=== PATIENT | female | born 1960 | race Caucasian/White ===

== ENCOUNTER → 2018-06-01 10:14 | Outpatient (CLI) | payer OTHER ==
[2015-06-25 10:49] VITALS: BMI 34.8
[~2018-06-01 10:14] MED LIST: BACTRIM DS TABL1 TAB PO; CYMBALTA30 MG PO; GLUCOPHAGE500 MG PO; HUMULIN R100 U/ML SC; LANTUS INSULIN10 ML SC
== END | disposition home or self-care (01) ==
LOC: D.RAD 10:14
DX: Z02.71 Encounter for disability determination (principal)

== ENCOUNTER 2019-10-11 00:42 | Inpatient (IN) | payer MEDICAID ==
[~2019-10-11] VITALS: Ht 162.6 cm; Wt 67.1 kg
[2019-10-11] MEDS ORDERED: JANUVIA100 MG PO (01:02)
[2019-10-11] MEDS ORDERED: GLIPIZIDE10 MG PO (01:02)
[2019-10-11] MEDS ORDERED: ABILIFY10 MG PO (01:03)
[2019-10-11] MEDS ORDERED: GLUCOPHAGE1000 MG (01:03)
[2019-10-11 01:25] LABS: EOSINOPHILS 2.3 % (0-7); HEMATOCRIT 24.9 % (36.0-48.0); IMMATURE GRANULOCYTES 0.2 % (0-5); LYMPHOCYTES 36.7 % (15-50); MCHC 24.9 g/dL (31.0-37.0); MCV 65.2 fL (80.0-100.0); MEAN PLATELET VOLUME 9.4 fL (7.4-10.4); MONOCYTES 12.2 % (2-11); NEUTROPHILS 47.6 % (40-80); RBC 3.82 10x6/uL (4.00-5.40); RDW 19.5 % (11.5-14.5); WBC 5.2 10x3/uL (4.8-10.8)
[2019-10-11 01:38] LABS: MCH 16.2 pg (26.0-34.0); PLATELET COUNT 332 10x3/uL (130-400)
[2019-10-11 01:39] LABS: HEMOGLOBIN 6.2 g/dL (12-16)
[2019-10-11 01:51] LABS: ALKALINE PHOSPHATASE 83 U/L (46-116); ALT (SGPT) 20 U/L (10-68); BILIRUBIN - TOTAL 0.36 mg/dL (0.2-1.3); CALCIUM 9.1 mg/dL (8.5-10.1); CARBON DIOXIDE 24.3 mmol/L (21.0-32.0); CHLORIDE - SERUM 98 mmol/L (98-107); CREATININE - SERUM 0.8 mg/dL (0.6-1.3); LIPASE 189 U/L (73-393); MAGNESIUM - SERUM 1.9 mg/dL (1.8-2.4); POTASSIUM - SERUM 4.4 mmol/L (3.5-5.1); PRO BNP 98 pg/mL (0-125); PROTEIN - SERUM 7.1 g/dL (6.4-8.2); SODIUM 131 mmol/L (136-145); THYROID STIMULATING HORMONE 5.43 uIU/mL (0.36-3.74); UREA NITROGEN 11 mg/dL (7-18); eGFR NON AFRICAN AMERICAN 77 mL/min (90-120)
[2019-10-11 01:58] LABS: CALC OSMOLALITY 284 mosm/kg (275-300); GLUCOSE 513 mg/dL (74-106); TROPONIN-I < 0.017 ng/mL (0.000-0.060)
[2019-10-11 03:56] LABS: UDS - AMPHET POSITIVE QUAL (NEGATIVE); UDS - BARB NEGATIVE QUAL (NEGATIVE); UDS - BENZO NEGATIVE QUAL (NEGATIVE); UDS - COCAINE NEGATIVE QUAL (NEGATIVE); UDS - OPIATE NEGATIVE QUAL (NEGATIVE); UDS - PCP NEGATIVE QUAL (NEGATIVE); UDS - THC NEGATIVE QUAL (NEGATIVE)
[2019-10-11 04:04] LABS: APPEARANCE CLEAR (CLEAR); COLOR STRAW (YELLOW); GLUCOSE 1000 mg/dL (NEGATIVE); KETONE SMALL mg/dL (NEGATIVE); NITRITE POSITIVE (NEGATIVE); PROTEIN NEGATIVE (NEGATIVE); UROBILINOGEN NORMAL (NORMAL)
[2019-10-11 04:05] LABS: BILIRUBIN NEGATIVE (NEGATIVE)
[2019-10-11 04:06] LABS: BACTERIA MANY /hpf (NEGATIVE); EPITHELIAL CELLS 0-5 /hpf (0-5); RED CELLS - URINE 0-5 /hpf (0-5)
[2019-10-11 04:27] VITALS: BP 103/49; BMI 25.5
--- NOTE | 2019-10-11 04:32 | NUR ---
RECEIVW=ED REPORT FROM ER. ARRIVED TO FLOOR ON STRETCHER. REPORTED COVERED IN BED BUGS WHEN ARRIVED TO ER. PLACED IN DECONTAMINATION ROOM IN ER. NO VISIBLE SIGNS OF BED BUGS AT THIS TIME. PRBC INFUSING AT 125CC/HR TO LEFT HAND AT THIS TIME. DENIES ANY PAIN. LUNG SOUNDS CLEAR BILATERALLY AND ABSX4. DENIES ANY NEEDS AT THIS TIME.
--- NOTE | 2019-10-11 08:24 | NUR ---
PATIENT IS SITTING UP AT THE SIDE OF THE BED. SECOND UNIT OF PRBC'S COMPLETE. SHE IS EATTING BREAKFAST. DENIES ANY NEEDS AT THIS TIME. RECIEVED SHIFT CHANGE REPORT. VITAL SIGNS STABLE. FINISHING BOLUS THAT WAS DUE ON ADMISSION AT 0400, BECAUSE IT HAD BEEN PAUSED FOR HER TO RECIEVE BLOOD. PATIENT IS ON CONTACT FOR BEDBUGS, AND HAS NO FAMILY AT BEDSIDE AT THIS TIME.
[2019-10-11 09:27] VITALS: BP 118/52
--- NOTE | 2019-10-11 10:17 | NUR ---
PATIENT IS AWAKE AND ALERT. SHE IS CONFUSED AT TIMES. SHE TRIED TO LEAVE THE ROOM AND WAS UNAWARE THAT SHE IS IN ISOLATION. SHE REORIENTED QUICKLY.
[2019-10-11 12:36] VITALS: BP 125/55
--- NOTE | 2019-10-11 12:44 | NUR ---
REPORTED BLOOD SUGAR OF [address] RAMONA MC. GAVE 20 UNITS OF INSULIN.
[2019-10-11 13:05] VITALS: BMI 25.4
[2019-10-11 16:38] VITALS: Ht 162.6 cm; Wt 67.1 kg
--- NOTE | 2019-10-11 16:59 | MORECARE ---
CASE MANAGEMENT DISCHARGE SUMMARY PATIENT: CHANTALE CABRERA UNIT: [id number] ADM DATE: 10/11/19 AGE: 59 : 56 SEX: F ROOM/BED: D.2108 AUTHOR: HANNAH,DOC PHYSICIAN: REFERRING PHYSICIAN: CARMINE DURÁN MD DATE OF SERVICE: 10/11/19 Discharge Plan Patient Name: CHANTALE CABRERA Facility: [facility]:[place] : 1960 Planned Disposition: Home Anticipated Discharge Date: Discharge Date: Expected LOS: Initial Reviewer: [email or web address] Initial Review Date: 10/11/2019 Generated: 10/11/19 5:59 pm Comments DCP- Discharge Planning Updated by [email or web address]: Dann Pepe on 10/11/19 3:[address] Patient Name: CHANTALE CABRERA Admission Status: ER Accout number: [id number] Admission Date: 10-11-2019 : 1960 Admission Diagnosis: Attending: CARMINE DURÁN Current LOS: 1 Anticipated DC Date: Planned Disposition: Home Primary Insurance: MEDICAID [place] Discharge Planning Comments: CM RECEIVED ORDER THAT PT HAS UNDESIRABLE LIVING CONDITIONS AND POSSIBLE APS INVOLVEMENT. CM MET WITH PT IN ROOM TO DISCUSS DISCHARGE PLANNING AND NEEDS. PT REPORTS LIVING AT HOME INDEPENDENTLY WITH HER ROOMATE, DARYL RAYMOND, WHO IS ALSO IN THE [facility] [place]; PT STATES THEY WERE BROUGHT IN BECAUSE THEY HAVE BEDBUGS AND THE AMBULANCE PERSON CALL ADULT PROTECTIVE SERVICES. PT HAS GLUCOMETER WITH NO MEDICAL EQUIPMENT PROVIDER PREFERENCE. PT HAS NO OUTSIDE SERVICES ASSISTING IN THE HOME. CM DISCUSSED AVAILABILITY OF HOME HEALTH, REHAB SERVICES AND MEDICAL EQUIPMENT. PT DENIES DISCHARGE NEEDS, REPORTS SHE WILL NEED ASSISTANCE WITH TRANSPORTATION TO GET HOME SHE NOR [address]. PT STATES SHE DOES USE MEDICAID BUS FOR MEDICAL APPOINTMENTS. PT REPORTS SHE HAS TREATED THE HOME FOR BEDBUGS WITH SPRAY AND POWDER, BUT THEY ARE STILL THERE. PT REPORTS SHE WOULD WELCOME ASSISTANCE FROM ADULT PROTECTIVE SERVICES TO GET RID OF BEDBUGS IF THEY CAN. PT REPORTS HER HOME TO BE SAFE AND SHE PLANS TO RETURN THERE AT DISCHARGE. PT PLANS TO RETURN HOME WITH ROOMMATE, DENIES DISCHARGE NEEDS. PT WILL NEED ASSISTANCE WITH TRANSPORTATION AND MAY USE THE MEDICAID TRANSPORT BUS IF IT IS AVAILABLE. CM TO CONTINUE TO FOLLOW AND ASSIST IF NEEDED. Glass Cutter: Dann Pepe DCPIA - Discharge Planning Initial Assessment Updated by [email or web address]: Dann Pepe on 10/11/19 4:53 pm * Is the patient Alert and Oriented? Yes * How many steps to enter\exit or inside your home? NONE * PCP DR. ZUNIGA * Pharmacy [facility] ON [address] * Preadmission Environment Home with Family * ADLs Independent * Equipment Glucometer * Other Equipment NO MEDICAL EQUIPMENT PROVIDER PREFERENCE * List name and contact numbers for known caregivers / representatives who currently or will assist patient after discharge: NONE PER PATIENT * Verbal permission to speak to the caregivers and representatives has been obtained from the patient. N/A * Community resources currently utilized None * Please name any agencies selected above. NONE * Additional services required to return to the preadmission environment? No * Can the patient safely return to the preadmission environment? Yes * Has this patient been hospitalized within the prior 30 days at any hospital? No Patient Name: CHANTALE CABRERA Page [id number] at 1659 All edits/amendments must be made on the electronic document DICTATION DATE: 10/11/191658 HOSIERY BAGGER: FLOYD 10/11/191658 RPT#: [id number] [place] DATE: STATUS: ADM IN [facility] [address] [place] [address] END OF REPORT
[2019-10-11 20:00] VITALS: BP 124/66
--- NOTE | 2019-10-11 20:05 | NUR ---
PT RESTING IN BED ALERT AND ORIENTED X4. CHANGED PT LINEN AT THIS TIME. RR EVEN AND UNLABORED. NO S/S OF DISTRESS. WILL CONTINUE TO MONITOR
[2019-10-12] VITALS: BP 111/58
--- NOTE | 2019-10-12 02:46 | NUR ---
I have reviewed this patient and I concur with the Shift Assessment completed by the Licensed Practical Nurse today this shift.
[2019-10-12 04:00] VITALS: BP 123/60
[2019-10-12 05:07] LABS: CALCIUM 8.7 mg/dL (8.5-10.1); CARBON DIOXIDE 24.4 mmol/L (21.0-32.0); CHLORIDE - SERUM 108 mmol/L (98-107); SODIUM 141 mmol/L (136-145); UREA NITROGEN 12 mg/dL (7-18)
[2019-10-12 05:08] LABS: CALC OSMOLALITY 282 mosm/kg (275-300); CREATININE - SERUM 0.5 mg/dL (0.6-1.3); GLUCOSE 130 mg/dL (74-106); POTASSIUM - SERUM 3.6 mmol/L (3.5-5.1); eGFR NON AFRICAN AMERICAN > 90 mL/min (90-120)
[2019-10-12 06:51] LABS: BASOPHILS 0.5 % (0-2); EOSINOPHILS 3.1 % (0-7); HEMATOCRIT 27.6 % (36.0-48.0); IMMATURE GRANULOCYTES 0.2 % (0-5); LYMPHOCYTES 35.9 % (15-50); MCHC 27.5 g/dL (31.0-37.0); MEAN PLATELET VOLUME 9.7 fL (7.4-10.4); MONOCYTES 13.2 % (2-11); NEUTROPHILS 47.1 % (40-80); PLATELET COUNT 280 10x3/uL (130-400); RBC 3.96 10x6/uL (4.00-5.40); RDW 22.1 % (11.5-14.5); WBC 5.5 10x3/uL (4.8-10.8)
[2019-10-12 06:52] LABS: HEMOGLOBIN 7.6 g/dL (12-16); MCH 19.2 pg (26.0-34.0); MCV 69.7 fL (80.0-100.0)
--- NOTE | 2019-10-12 07:20 | NUR ---
PT RESTING PEACEFULLY, BREATHS EVEN/REGULAR AND UNLABORED, NO SIGNS OR SYMPTOMS OF ACUTE DISTRESS NOTED AT THIS TIME. CL IN [facility], SRX2, NO FAMILY PRESENT AT BEDSIDE.
[2019-10-12 09:06] VITALS: BP 127/68
[2019-10-12 10:20] LABS: % SATURATION 2 % (15-55); IRON 12 ug/dl (35-150); TOTAL IRON BIND CAPACITY 407 ug/dl (260-445); UNSAT IRON BIND CAPACITY 395 ug/dl (150-375)
[2019-10-12 13:16] VITALS: BP 109/68
--- NOTE | 2019-10-12 15:43 | NUR ---
I have reviewed this patient and I concur with the Shift Assessment completed by the Licensed Practical Nurse today this shift.
--- NOTE | 2019-10-12 19:25 | NUR ---
PT HAS BEEN AWAKE AND ORIENTED. I/VS INTACT AND WORKING WELL, NOW BOTH SL. CHANGED LINNENS AND PT HEATH A SHOWER. NO COMPLAINTS/CONCERNS AT THIS TIME. PT REPORTS NO DIAHREAH TODAY, EXPLOSIVE OR OTHERWISE. NO FAMILY PRESENT AT BEDSIDE, NO SIGNS OR BED BUGS SEEN TODAY. CL IN REACH, SRX2.
--- NOTE | 2019-10-12 19:45 | NUR ---
PT RESTING IN BED WITH EYES CLOSED RR EVEN AND UNLABORED. NO S/S OF DISTRESS. VITALS STABLE. BED LOW CALL LIGHT WITHIN REACH. WILL CONTINUE TO MONITOR.
[2019-10-12 20:00] VITALS: BP 136/60
[2019-10-13] VITALS: BP 130/52
--- NOTE | 2019-10-13 02:52 | NUR ---
PT RESTING IN BED WITH EYES CLOSED. RR EVEN AND UNLABORED. BED LOW CALL LIGHT WITHIN REACH. WILL CONTINUE TO MONITOR.
[2019-10-13 04:00] VITALS: BP 140/69
--- NOTE | 2019-10-13 04:13 | NUR ---
I have reviewed this patient and I concur with the Shift Assessment completed by the Licensed Practical Nurse today this shift.
[2019-10-13 05:14] LABS: CALCIUM 8.6 mg/dL (8.5-10.1); CARBON DIOXIDE 23.4 mmol/L (21.0-32.0); CHLORIDE - SERUM 107 mmol/L (98-107); POTASSIUM - SERUM 3.9 mmol/L (3.5-5.1); SODIUM 139 mmol/L (136-145); UREA NITROGEN 12 mg/dL (7-18); eGFR NON AFRICAN AMERICAN 90 mL/min (90-120)
[2019-10-13 05:15] LABS: CALC OSMOLALITY 288 mosm/kg (275-300); CREATININE - SERUM 0.7 mg/dL (0.6-1.3); GLUCOSE 295 mg/dL (74-106)
[2019-10-13 05:26] LABS: BASOPHILS 0.4 % (0-2); EOSINOPHILS 1.6 % (0-7); HEMATOCRIT 29.3 % (36.0-48.0); HEMOGLOBIN 7.9 g/dL (12-16); IMMATURE GRANULOCYTES 0.2 % (0-5); LYMPHOCYTES 23.7 % (15-50); MCV 70.1 fL (80.0-100.0); MEAN PLATELET VOLUME 9.4 fL (7.4-10.4); MONOCYTES 14.2 % (2-11); NEUTROPHILS 59.9 % (40-80); PLATELET COUNT 232 10x3/uL (130-400); RBC 4.18 10x6/uL (4.00-5.40); RDW 22.9 % (11.5-14.5); WBC 4.9 10x3/uL (4.8-10.8)
[2019-10-13 05:27] LABS: MCH 18.9 pg (26.0-34.0)
--- NOTE | 2019-10-13 07:16 | NUR ---
PT RESTING PEACEFULLY, BREATHS EVEN REGULAR AND UNLABORED. NO SIGNS OR SYMTPOMS OF ACUTE DISTRESS NOTED AT THIS TIME. NO FAMILY AT BEDSIDE. CL IN REACH, SRX2.
[2019-10-13 08:55] VITALS: BP 129/86
--- NOTE | 2019-10-13 10:00 | NUR ---
PT AWAKE AND ORIENTED, SITTING ON SIDE OF BED EATING BREAKFAST. NO COMPLAINTS/CONCERNS, HOPEFULL TO GO HOME SOON. REPORTS NOT DIAHREAH SINCE THE 2 DAYS AGO, BUT HAS HAD UNCOMPLICATED B.MS. NO FAMILY PRESENT AT BEDSIDE. CL IN REACH, SRX2.
--- NOTE | 2019-10-13 10:47 | NUR ---
I have reviewed this patient and I concur with the Shift Assessment completed by the Licensed Practical Nurse today this shift.
[2019-10-13 16:40] VITALS: BP 111/70
--- NOTE | 2019-10-13 18:37 | NUR ---
PT AWAKE AND ORIENTED, BEEN UP WITHOUT ASSIST TO THE BATHROOM. NO COMPLAINTS OR CONCERNS. IRON RUNNING, IVS INTACT WNL. NO FAMILY PRESENT AT BEDSIDE. CL IN REACH, SRX2
--- NOTE | 2019-10-13 19:20 | NUR ---
REPORT RECEIVED. PT IN BED RR EVEN AND UNLABORED ON RA. NO S/Sx OF DISTRESS NOTED AT THIS TIME. NO VOICED C/O OR CONCERNS NOTED AT THIS TIME. SRX2, CALL LIGHT IN REACH. WILL CTM.
[2019-10-13 20:00] VITALS: BP 126/58
[2019-10-14 00:28] VITALS: BP 127/54
[2019-10-14 03:41] LABS: BASOPHILS 0.6 % (0-2); EOSINOPHILS 2.6 % (0-7); HEMATOCRIT 27.4 % (36.0-48.0); IMMATURE GRANULOCYTES 0.2 % (0-5); LYMPHOCYTES 32.1 % (15-50); MCHC 27.4 g/dL (31.0-37.0); MCV 70.1 fL (80.0-100.0); MEAN PLATELET VOLUME 9.3 fL (7.4-10.4); MONOCYTES 12.2 % (2-11); NEUTROPHILS 52.3 % (40-80); PLATELET COUNT 225 10x3/uL (130-400); RBC 3.91 10x6/uL (4.00-5.40); RDW 23.4 % (11.5-14.5); WBC 4.7 10x3/uL (4.8-10.8)
[2019-10-14 03:42] LABS: MCH 19.2 pg (26.0-34.0)
[2019-10-14 03:43] LABS: HEMOGLOBIN 7.5 g/dL (12-16)
[2019-10-14 03:47] LABS: CALCIUM 8.8 mg/dL (8.5-10.1); CARBON DIOXIDE 24.1 mmol/L (21.0-32.0); CHLORIDE - SERUM 108 mmol/L (98-107); CREATININE - SERUM 0.6 mg/dL (0.6-1.3); SODIUM 141 mmol/L (136-145); UREA NITROGEN 15 mg/dL (7-18); eGFR NON AFRICAN AMERICAN > 90 mL/min (90-120)
[2019-10-14 03:48] LABS: CALC OSMOLALITY 284 mosm/kg (275-300); GLUCOSE 153 mg/dL (74-106); POTASSIUM - SERUM 3.2 mmol/L (3.5-5.1)
[2019-10-14 04:30] VITALS: BP 124/63
--- NOTE | 2019-10-14 09:50 | NUR ---
PT HAD A BOWEL ACCIDENT OF DIARRHEA. PT STATES IT IS CHRONIC AND WOULD LIKE SOME IMMODIUM. PT WAS A STAND BY JARED IN THE SHOWER. COMPLETE LINEN CHANGE DONE. PT REFUSED METFORMIN STATING THIS IS WHAT IS CAUSING HER DIARRHEA. BED LOW. CL IN REACH. LAB DOING BLOOD DRAW. WILL COTNINUE TO MONITOR.
--- NOTE | 2019-10-14 09:56 | NUR ---
SPOKE WITH VON LEE AND SHE STATES TO ORDER QUESTRAN TID AND IMODIUM PRN. I VERBALIZED UNDERSTANDING. SHE STATES METFORMIN CAN CAUSE DIARRHEA.
[2019-10-14 10:27] VITALS: BP 113/60
--- NOTE | 2019-10-14 12:37 | NUR ---
HAD MESSAGE LEFT ON MY DESK TO CALL BACK PT'S BROTHER. SPOKE WITH PT ABOUT GIVING HIM INFORMATION ON HER AND SHE STATES THAT IT IS OK. I VERBALIZED UNDERSTANDING.
--- NOTE | 2019-10-14 12:41 | NUR ---
CALLED AND SPOKE WITH PT'S BROTHER AND ANSWERED QUESTIONS ABOUT DISCHARGE PLANNING. THEY STATE PT HAS NO WHERE TO GO AND THEY HAVE BEEN TRYING TO GET PT TO FILL OUT DISABILITY PAPERS FOR THE PAST MONTH SO SHE CAN GET ON DIABILITY BECAUSE SHE WOULD BE ELIGIBLE. I VERBALIZED UNDERSTANDING. HE STATES HIM ADN HIS WILL COME VISIT PT LATER. I VERBALIZED UNDERSTANDING.
[2019-10-14 13:10] VITALS: BP 143/70
--- NOTE | 2019-10-14 14:11 | NUR ---
Nutrition Follow-up: Noted pt with chronic diarrhea; refusing Metformin 2/2 diarrhea. Imodium and Questran started per MD. Diet: Diabetic No new wt Labs noted: K+ 3.2, Glu 153 Meds noted: Glucophage, KDur, Glucotrol, Humulin, Imodium, Questran -Continue current diet as tolerated. -Offer nutrition supplements with meals. -RD following.
--- NOTE | 2019-10-14 14:43 | NUR ---
PT JUST ATE ENTIRE LUNCH TRAY AN HOUR AND A HALF AGO. HAD X3 PACKAGES OF REYMUNDO CRACKERS AND X2 PEANUT BUTTER AND VANILLA PUDDING AT 0930 AND ATE ENTIRE BREAKFAST TRAY. PT STATES SHE IS STARVING. 1130 BS WAS 334 BECAUSE PT HAS BEEN NON COMPLIANT WITH DIABETIC DIET. SPOKE WTNICHOL LOCKWOOD ABOUT THIS AND SHE STATES NO MORE EXTRA TRAYS FOR PATIENT AND LIMIT SNACKS AND NEEDS TO BE ONLY SUGAR FREE SNACKS. I STATED TO PT ALL THIS AND SHE CALLED [employer] CONSULTANT THAT "SHE IS STARVING AND WE ARE STARVING HER." WHICH CAN NOT BE TRUE D/T ALL PT HAS ATE SO FAR TODAY. [employer] CONSULTANT CALLED AND SPOKE WITH GAS FLOW REGULATOR AND TOLD HER PT HAS EATEN EVERYTRAY AND SNACKS TODAY. SAP ARIBA CONSULTANT VERBALIZED UNDERSTANDING. GAVE PT X2 SUGAR FREE JELLOS.
--- NOTE | 2019-10-14 14:50 | NUR ---
VON LEE STATES TO ME TO ORDER REAL ESTATE FINANCIAL ANALYST CONSULT ABOUT DIABETIC DIET EDUCATION. I VERBALIZED UNDERSTADNING.
--- NOTE | 2019-10-14 15:39 | NUR ---
I have reviewed this patient and I concur with the Shift Assessment completed by the Licensed Practical Nurse today this shift.
[2019-10-14 17:00] VITALS: BP 122/61
--- NOTE | 2019-10-14 19:00 | NUR ---
EVENING ROUNDS COMPLETE. PT LAYING IN BED, NO SIGNS OF DISTRESS. AAOX4. CL IN REACH, BED IN LOWEST POSITION. PT DENIES ANY PAIN AT THIS TIME.
[2019-10-14 20:00] VITALS: BP 112/50
[2019-10-15] VITALS: BP 120/5
[2019-10-15 04:00] VITALS: BP 138/113
[2019-10-15 06:21] LABS: BASOPHILS 0.2 % (0-2); EOSINOPHILS 1.1 % (0-7); HEMATOCRIT 30.5 % (36.0-48.0); HEMOGLOBIN 8.2 g/dL (12-16); IMMATURE GRANULOCYTES 0.2 % (0-5); LYMPHOCYTES 10.3 % (15-50); MCHC 26.9 g/dL (31.0-37.0); MCV 71.1 fL (80.0-100.0); MONOCYTES 5.7 % (2-11); NEUTROPHILS 82.5 % (40-80); PLATELET COUNT 206 10x3/uL (130-400); RBC 4.29 10x6/uL (4.00-5.40); RDW 24.2 % (11.5-14.5); WBC 4.6 10x3/uL (4.8-10.8)
[2019-10-15 06:33] LABS: MCH 19.1 pg (26.0-34.0)
[2019-10-15 06:42] LABS: CALC OSMOLALITY 287 mosm/kg (275-300); CALCIUM 8.5 mg/dL (8.5-10.1); CARBON DIOXIDE 21.6 mmol/L (21.0-32.0); CHLORIDE - SERUM 106 mmol/L (98-107); CREATININE - SERUM 0.7 mg/dL (0.6-1.3); POTASSIUM - SERUM 3.7 mmol/L (3.5-5.1); SODIUM 140 mmol/L (136-145); UREA NITROGEN 13 mg/dL (7-18); eGFR NON AFRICAN AMERICAN 90 mL/min (90-120)
[2019-10-15 06:45] LABS: GLUCOSE 258 mg/dL (74-106)
--- NOTE | 2019-10-15 07:30 | NUR ---
A/A/OX4. DENIES ANY PAIN AT PRESENT TIME AND VOICES NO REQUESTS. REMAINS IN CONTACT ISOLATION AND PRECAUTIONS BEING FOLLOWED. ASSESSMENT COMPLETED AND WILL CONTINUE POC. CALL LIGHT IN REACH AND BED IN LOW POSITION.
--- NOTE | 2019-10-15 07:45 | NUR ---
A/A/OX4. DENIES ANY PAIN OR DISCOMFORT AT THIS TIME AND NO REQUESTS VOICED. PT IS UP AD [place] IN ROOM AND UP IN BEDSIDE CHAIR AT PRESENT TIME. LEFT CHEST HEMESPLIT PATENT AND DRESSING C/D/I. ASSESSMENT COMPLETED AND WILL CONTINUE POC.
--- NOTE | 2019-10-15 10:30 | NUR ---
LARGE AMOUNT INCONTINENT DIARRHEA STOOL. CLEANED AND MADE COMFORTABLE. NO REQUESTS.
[2019-10-15 10:57] VITALS: BP 113/48
[2019-10-15 12:00] VITALS: BP 114/61
--- NOTE | 2019-10-15 13:25 | NUR ---
Nutrition Consult/Follow-up: Received consult for diabetic education. Eating well overall, although reports some nausea today. Continues to have diarrhea. Diet: Diabetic PO intake: 100% yesterday No new wt Labs noted: Glu 258, A1C 10.9 Meds noted: Imodium, Questran, Glucophage, KDur, Glucotrol, Humulin -Continue current diet as tolerated. -Provided education/written information on diabetic diet. No questions. -RD following.
--- NOTE | 2019-10-15 16:46 | MORECARE ---
CASE MANAGEMENT DISCHARGE SUMMARY PATIENT: CHANTALE CABRERA UNIT: [id number] ADM DATE: 10/11/19 AGE: 59 : 56 SEX: F ROOM/BED: D.2100 AUTHOR: HANANH,DOC PHYSICIAN: REFERRING PHYSICIAN: CARMINE DURÁN MD DATE OF SERVICE: 10/15/19 Discharge Plan Patient Name: CHANTALE CABRERA Facility: [facility]:[place] : 1960 Planned Disposition: Home Anticipated Discharge Date: 10/16/19 Discharge Date: Expected LOS: 5 Initial Reviewer: [email or web address] Initial Review Date: 10/11/2019 Generated: 10/15/19 5:45 pm DCP- Discharge Planning Updated by [email or web address]: Dann Pepe on 10/11/19 3:[address] Patient Name: CHANTALE CABRERA Admission Status: ER Accout number: [id number] Admission Date: 10-11-2019 : 1960 Admission Diagnosis: Attending: CARMINE DURÁN Current LOS: 1 Anticipated DC Date: Planned Disposition: Home Primary Insurance: MEDICAID [place] Discharge Planning Comments: CM RECEIVED ORDER THAT PT HAS UNDESIRABLE LIVING CONDITIONS AND POSSIBLE APS INVOLVEMENT. CM MET WITH PT IN ROOM TO DISCUSS DISCHARGE PLANNING AND NEEDS. PT REPORTS LIVING AT HOME INDEPENDENTLY WITH HER ROOMATE, DARYL RAYMOND, WHO IS ALSO IN THE [facility] [place]; PT STATES THEY WERE BROUGHT IN BECAUSE THEY HAVE BEDBUGS AND THE AMBULANCE PERSON CALL ADULT PROTECTIVE SERVICES. PT HAS GLUCOMETER WITH NO MEDICAL EQUIPMENT PROVIDER PREFERENCE. PT HAS NO OUTSIDE SERVICES ASSISTING IN THE HOME. CM DISCUSSED AVAILABILITY OF HOME HEALTH, REHAB SERVICES AND MEDICAL EQUIPMENT. PT DENIES DISCHARGE NEEDS, REPORTS SHE WILL NEED ASSISTANCE WITH TRANSPORTATION TO GET HOME SHE [address]. PT STATES SHE DOES USE MEDICAID BUS FOR MEDICAL APPOINTMENTS. PT REPORTS SHE HAS TREATED THE HOME FOR BEDBUGS WITH SPRAY AND POWDER, BUT THEY ARE STILL THERE. PT REPORTS SHE WOULD WELCOME ASSISTANCE FROM ADULT PROTECTIVE SERVICES TO GET RID OF BEDBUGS IF THEY CAN. PT REPORTS HER HOME TO BE SAFE AND SHE PLANS TO RETURN THERE AT DISCHARGE. PT PLANS TO RETURN HOME WITH ROOMMATE, DENIES DISCHARGE NEEDS. PT WILL NEED ASSISTANCE WITH TRANSPORTATION AND MAY USE THE MEDICAID TRANSPORT BUS IF IT IS AVAILABLE. CM TO CONTINUE TO FOLLOW AND ASSIST IF NEEDED. Greeter Guest Services: Dann Pepe DCPIA - Discharge Planning Initial Assessment Updated by [id number]: Dann Pepe on 10/11/19 4:53 pm * Is the patient Alert and Oriented? Yes * How many steps to enter\exit or inside your home? NONE * PCP DR. ZUNIGA * [facility] [address] * Preadmission Environment Home with Family * ADLs Independent * Equipment Glucometer * Other Equipment NO MEDICAL EQUIPMENT PROVIDER PREFERENCE * List name and contact numbers for known caregivers / representatives who currently or will assist patient after discharge: NONE PER PATIENT * Verbal permission to speak to the caregivers and representatives has been obtained from the patient. N/A * Community resources currently utilized None * Please name any agencies selected above. NONE * Additional services required to return to the preadmission environment? No * Can the patient safely return to the preadmission environment? Yes * Has this patient been hospitalized within the prior 30 days at any hospital? No Last DP export: 10/11/19 3:59 p Patient Name: CHANTALE CABRERA Page [id number] at 1646 All edits/amendments must be made on the electronic document DICTATION DATE: 10/15/191644 SENIOR QUANTITY SURVEYOR: FLOYD 10/15/191644 RPT#: [id number] DC DATE: STATUS: ADM IN [facility] [address] [place] [address] END OF REPORT
--- NOTE | 2019-10-15 16:55 | MORECARE ---
CASE MANAGEMENT DISCHARGE SUMMARY PATIENT: CHANTALE CABRERA UNIT: [id number] ADM DATE: 10/11/19 AGE: 59 : 56 SEX: F ROOM/BED: D.2100 AUTHOR: HANNAH,DOC PHYSICIAN: REFERRING PHYSICIAN: CARMINE DURÁN MD DATE OF SERVICE: 10/15/19 Discharge Plan Patient Name: CHANTALE CABRERA Facility: [facility]:[place] : 1960 Planned Disposition: Home Anticipated Discharge Date: 10/16/19 Discharge Date: Expected LOS: 5 Initial Reviewer: [email or web address] Initial Review Date: 10/11/2019 Generated: 10/15/19 5:54 pm Comments DCP- Discharge Planning Updated by [email or web address]: Dann Pepe on 10/15/19 3:[address] Patient Name: CHANTALE CABRERA Encounter No: [id number] : 1960 Primary Insurance: [place] [employer] [facility] Anticipated DC Date: 10-16-2019 Planned Disposition: Home DCP follow-up note: CM RECEIVED CALL FROM JOE AND LEANA DAVIS, PT'S FRIENDS, AND [phone]. HINA DUEÑAS INFORMED CM THAT THE HOME THAT PT WAS LIVING IN BELONGS TO [facility] AND PT CANNOT RETURN THERE [facility] IS GOING TO A INTERMEDIATE AND THE HOUSE IS LOCKED AND FULL OF BUGS. PT IS TOO WEAK TO LIVE ON THE STREET AND HAS NO INCOME. THEY ASKED IF PT COULD GO TO THE MEDICAL CENTER. CM EXPLAINED THAT CM COULD NOT DISCUSS WITHOUT PT'S PERMISSION. LEANA INFORMED CM THAT PT'S BROTHER HAS HELPED PT IN THE PAST AND MAYBE HE CAN AGAIN. JOE PROVIDED PT'S PASTORS NUMBER, AND [phone]. CM MET WITH PT IN ROOM WHO PROVIDED PERMISSON TO SPEAK TO BOTH PASTOR LOUISE WELL JOE AND LEANA DAVIS IN REGARDS TO PT'S TREATMENT, CARE AND DISCHARGE PLANNING. CM DISCUSSED THAT PT CANNOT RETURN TO THE HOME WHERE SHE WAS LIVING. PT REPORTS SHE HAS BEEN TOLD AND PLANS TO STAY WITH HER BROTHER IN [place]. PT ASKED FOR CM TO CALL LEANA AND GET THE PHONE NUMBER TO HER BROTHER; CM CALLED LEANA DAVIS, , WHO PROVIDED PHONE NUMBER TO PT'S BROTHER, FERMIN DANIELS, . CM PROVIDED PHONE NUBMER TO PT TO CALL HER BROTHER. CM OFFERED TO START FINDING PT A WOMENS USP IN [place], PT DECLINED AND REPORTS SHE WILL BE STAYING WITH HER BROTHER AND WILL CALL HIM. PT STATES THAT HER BROTHER IS SUPPOSED TO VISIT WITH HER AT THE HOSPITAL ALSO, SHE IS WAITING FOR HIS ARRIVAL. NASIR GOMEZ OF [place] [facility], ADULT PROTECTIVE SERVICES, MET WITH PT ON TWO OCCAISIONS TODAY, MET WITH CM AND NOTIFED THAT THERE IS NO HOLD ON PATIENT, SHE HAS MENTAL CAPACITY TO MAKE DECISIONS FOR HERSELF. PT HAS TOLD MR. GOMEZ THAT SHE PLANS TO STAY WITH HER BROTHER IN [place]. PT HAS NO HOLD FROM ADULT PROTECTIVE SERVICES. PT HAS PLANS TO STAY WITH HER BROTHER IN [place] AT DISCHARGE. CM TO FOLLOW AND ASSIST NEEDED. Dann Pepe, CASE MANAGEMENT DCP- Discharge Planning Updated by [email or web address]: Dann Pepe on 10/11/19 3:[address] Patient Name: CHANTALE CABRERA Admission Status: ER Accout number: [id number] Admission Date: 10-11-2019 : 1960 Admission Diagnosis: Attending: CARMINE DURÁN Current LOS: 1 Anticipated DC Date: Planned Disposition: Home Primary Insurance: MEDICAID [place] Discharge Planning Comments: CM RECEIVED ORDER THAT PT HAS UNDESIRABLE LIVING CONDITIONS AND POSSIBLE APS INVOLVEMENT. CM MET WITH PT IN ROOM TO DISCUSS DISCHARGE PLANNING AND NEEDS. PT REPORTS LIVING AT HOME INDEPENDENTLY WITH HER ROOMATE, DARYL RAYMOND, WHO IS ALSO IN THE [facility] [place]; PT STATES THEY WERE BROUGHT IN BECAUSE THEY HAVE BEDBUGS AND THE AMBULANCE PERSON CALL ADULT PROTECTIVE SERVICES. PT HAS GLUCOMETER WITH NO MEDICAL EQUIPMENT PROVIDER PREFERENCE. PT HAS NO OUTSIDE SERVICES ASSISTING IN THE HOME. CM DISCUSSED AVAILABILITY OF HOME HEALTH, REHAB SERVICES AND MEDICAL EQUIPMENT. PT DENIES DISCHARGE NEEDS, REPORTS SHE WILL NEED ASSISTANCE WITH TRANSPORTATION TO GET HOME SHE NOR [address]. PT STATES SHE DOES USE MEDICAID BUS FOR MEDICAL APPOINTMENTS. PT REPORTS SHE HAS TREATED THE HOME FOR BEDBUGS WITH SPRAY AND POWDER, BUT THEY ARE STILL THERE. PT REPORTS SHE WOULD WELCOME ASSISTANCE FROM ADULT PROTECTIVE SERVICES TO GET RID OF BEDBUGS IF THEY CAN. PT REPORTS HER HOME TO BE SAFE AND SHE PLANS TO RETURN THERE AT DISCHARGE. PT PLANS TO RETURN HOME WITH ROOMMATE, DENIES DISCHARGE NEEDS. PT WILL NEED ASSISTANCE WITH TRANSPORTATION AND MAY USE THE MEDICAID TRANSPORT BUS IF IT IS AVAILABLE. CM TO CONTINUE TO FOLLOW AND ASSIST IF NEEDED. Mortuary Beautician: Dann Pepe DCPIA - Discharge Planning Initial Assessment Updated by [email or web address]: Dann Pepe on 10/11/19 4:53 pm * Is the patient Alert and Oriented? Yes * How many steps to enter\exit or inside your home? NONE * PCP DR. ZUNIGA * Pharmacy [facility] [address] * Preadmission Environment Home with Family * ADLs Independent * Equipment Glucometer * Other Equipment NO MEDICAL EQUIPMENT PROVIDER PREFERENCE * List name and contact numbers for known caregivers / representatives who currently or will assist patient after discharge: NONE PER PATIENT * Verbal permission to speak to the caregivers and representatives has been obtained from the patient. N/A * Community resources currently utilized None * Please name any agencies selected above. NONE * Additional services required to return to the preadmission environment? No * Can the patient safely return to the preadmission environment? Yes * Has this patient been hospitalized within the prior 30 days at any hospital? No Last DP export: 10/15/19 3:46 Patient Name: CHANTALE CABRERA Page [id number] at 1655 All edits/amendments must be made on the electronic document DICTATION DATE: 10/15/191653 CHICKEN BUYER: FLOYD 10/15/191653 RPT#: [id number] [place] DATE: STATUS: ADM IN [facility] [address] [place] [address] END OF REPORT
--- NOTE | 2019-10-15 18:27 | NUR ---
REVIEWED ASSESSMENT BY TELEHEALTH NURSE AND I CONCUR.
--- NOTE | 2019-10-15 19:16 | NUR ---
EVENING ROUNDS COMPLETE, PT WALKING AROUND ROOM. AAOX4, NO SIGNS OF DISTRESS. PT DENIES ANY PAIN OR NEEDS AT THIS TIME. CL IN REACH, BED IN LOWEST POSITION.
[2019-10-15 20:00] VITALS: BP 139/50
[2019-10-16 00:27] VITALS: BP 117/69
[2019-10-16 04:30] VITALS: BP 133/56
[2019-10-16 04:57] LABS: CALC OSMOLALITY 283 mosm/kg (275-300); CALCIUM 8.3 mg/dL (8.5-10.1); CARBON DIOXIDE 23.3 mmol/L (21.0-32.0); CHLORIDE - SERUM 106 mmol/L (98-107); CREATININE - SERUM 0.6 mg/dL (0.6-1.3); GLUCOSE 218 mg/dL (74-106); SODIUM 139 mmol/L (136-145); UREA NITROGEN 11 mg/dL (7-18); eGFR NON AFRICAN AMERICAN > 90 mL/min (90-120)
[2019-10-16 05:00] LABS: BASOPHILS 0.2 % (0-2); EOSINOPHILS 1.2 % (0-7); HEMATOCRIT 29.9 % (36.0-48.0); IMMATURE GRANULOCYTES 0.5 % (0-5); LYMPHOCYTES 24.2 % (15-50); MCHC 26.8 g/dL (31.0-37.0); MCV 71.7 fL (80.0-100.0); MEAN PLATELET VOLUME 9.7 fL (7.4-10.4); MONOCYTES 7.7 % (2-11); NEUTROPHILS 66.2 % (40-80); PLATELET COUNT 226 10x3/uL (130-400); RBC 4.17 10x6/uL (4.00-5.40); RDW 25.4 % (11.5-14.5); WBC 4.1 10x3/uL (4.8-10.8)
[2019-10-16 05:01] LABS: MCH 19.2 pg (26.0-34.0)
[2019-10-16 08:32] VITALS: BP 120/65
[2019-10-16 11:51] VITALS: BP 104/48
--- NOTE | 2019-10-16 12:47 | NUR ---
I have reviewed this patient and I concur with the Shift Assessment completed by the Licensed Practical Nurse today this shift.
[2019-10-16] MEDS ORDERED: CIPRO250 MG PO (14:39)
--- NOTE | 2019-10-16 15:30 | MORECARE ---
CASE MANAGEMENT DISCHARGE SUMMARY PATIENT: CHANTALE CABRERA UNIT: [id number] ADM DATE: 10/11/19 AGE: 59 : 56 SEX: F ROOM/BED: D.2107 AUTHOR: HANNAH,DOC PHYSICIAN: REFERRING PHYSICIAN: CARMINE DURÁN MD DATE OF SERVICE: 10/16/19 Discharge Plan Patient Name: CHANTALE CABRERA Facility: [facility]:[place] : 1960 Planned Disposition: Home Anticipated Discharge Date: 10/16/19 Discharge Date: Expected LOS: 5 Initial Reviewer: [id number] Initial Review Date: 10/11/2019 Generated: 10/16/19 4:30 pm DCP- Discharge Planning Updated by [id number]: Dann Pepe on 10/15/19 3:[address] Patient Name: CHANTALE CABRERA Encounter No: [id number] : 1960 [place] Insurance: [place] PRIVATE OPT[place] [facility] Anticipated DC Date: 10-16-2019 Planned Disposition: Home DCP follow-up note: CM RECEIVED CALL FROM JOE AND LEANA DAVIS, PT'S FRIENDS, AND [phone]. HINA DUEÑAS INFORMED CM THAT THE HOME THAT PT WAS LIVING IN BELONGS TO [facility] AND PT CANNOT RETURN THERE [facility] IS GOING TO A INTERMEDIATE AND THE HOUSE IS LOCKED AND FULL OF BUGS. PT IS TOO WEAK TO LIVE ON THE STREET AND HAS NO INCOME. THEY ASKED IF PT COULD GO TO [facility]. CM EXPLAINED THAT CM COULD NOT DISCUSS WITHOUT PT'S PERMISSION. LEANA INFORMED CM THAT PT'S BROTHER HAS HELPED PT IN THE PAST AND MAYBE HE CAN AGAIN. JOE PROVIDED PT'S PASTORS NUMBER, AND [phone]. CM MET WITH PT IN ROOM WHO PROVIDED PERMISSON TO SPEAK TO BOTH PASTOR LOUISE WELL JOE AND LEANA DAVIS IN REGARDS TO PT'S TREATMENT, CARE AND DISCHARGE PLANNING. CM DISCUSSED THAT PT CANNOT RETURN TO THE HOME WHERE SHE WAS LIVING. PT REPORTS SHE HAS BEEN TOLD AND PLANS TO STAY WITH HER BROTHER IN [place]. PT ASKED FOR CM TO CALL LEANA AND GET THE PHONE NUMBER TO HER BROTHER; CM CALLED LEANA DAVIS [phone], WHO PROVIDED PHONE NUMBER TO PT'S BROTHER, FERMIN DANIELS, . CM PROVIDED PHONE NUBMER TO PT TO CALL HER BROTHER. CM OFFERED TO START FINDING PT A [facility] IN [place], PT DECLINED AND REPORTS SHE WILL BE STAYING WITH HER BROTHER AND WILL CALL HIM. PT STATES THAT HER BROTHER IS SUPPOSED TO VISIT WITH HER AT THE HOSPITAL ALSO, SHE IS WAITING FOR HIS ARRIVAL. NASIR GOMEZ OF [place] DEPARTMENT OF HUMAN SERVICES, ADULT PROTECTIVE SERVICES, MET WITH PT ON TWO OCCAISIONS TODAY, MET WITH CM AND NOTIFED THAT THERE IS NO HOLD ON PATIENT, SHE HAS MENTAL CAPACITY TO MAKE DECISIONS FOR HERSELF. PT HAS TOLD MR. GOMEZ THAT SHE PLANS TO STAY WITH HER BROTHER IN [place]. PT HAS NO HOLD FROM ADULT PROTECTIVE SERVICES. PT HAS PLANS TO STAY WITH HER BROTHER IN [place] AT DISCHARGE. CM TO FOLLOW AND ASSIST NEEDED. Dann Pepe, CASE MANAGEMENT DCP- Discharge Planning Updated by [id number]: Dann Pepe on 10/11/19 3:[address] Patient Name: CHANTALE CABRERA Admission Status: ER Accout number: [id number] Admission Date: 10-11-2019 : 1960 Admission Diagnosis: Attending: CARMINE DURÁN Current LOS: 1 Anticipated DC Date: Planned Disposition: Home Primary Insurance: MEDICAID [place] Discharge Planning Comments: CM RECEIVED ORDER THAT PT HAS UNDESIRABLE LIVING CONDITIONS AND POSSIBLE APS INVOLVEMENT. CM MET WITH PT IN ROOM TO DISCUSS DISCHARGE PLANNING AND NEEDS. PT REPORTS LIVING AT HOME INDEPENDENTLY WITH HER ROOMATE, DARYL RAYMOND, WHO IS ALSO IN [facility]; PT STATES THEY WERE BROUGHT IN BECAUSE THEY HAVE BEDBUGS AND THE AMBULANCE PERSON CALL ADULT PROTECTIVE SERVICES. PT HAS GLUCOMETER WITH NO MEDICAL EQUIPMENT PROVIDER PREFERENCE. PT HAS NO OUTSIDE SERVICES ASSISTING IN THE HOME. CM DISCUSSED AVAILABILITY OF HOME HEALTH, REHAB SERVICES AND MEDICAL EQUIPMENT. PT DENIES DISCHARGE NEEDS, REPORTS SHE WILL NEED ASSISTANCE WITH TRANSPORTATION TO GET HOME SHE NOR [address]. PT STATES SHE DOES USE MEDICAID BUS FOR MEDICAL APPOINTMENTS. PT REPORTS SHE HAS TREATED THE HOME FOR BEDBUGS WITH SPRAY AND POWDER, BUT THEY ARE STILL THERE. PT REPORTS SHE WOULD WELCOME ASSISTANCE FROM ADULT PROTECTIVE SERVICES TO GET RID OF BEDBUGS IF THEY CAN. PT REPORTS HER HOME TO BE SAFE AND SHE PLANS TO RETURN THERE AT DISCHARGE. PT PLANS TO RETURN HOME WITH ROOMMATE, DENIES DISCHARGE NEEDS. PT WILL NEED ASSISTANCE WITH TRANSPORTATION AND MAY USE THE MEDICAID TRANSPORT BUS IF IT IS AVAILABLE. CM TO CONTINUE TO FOLLOW AND ASSIST IF NEEDED. Bankruptcy Processor: Dann Pepe DCPIA - Discharge Planning Initial Assessment Updated by [id number]: Dann Pepe on 10/11/19 4:53 pm * Is the patient Alert and Oriented? Yes * How many steps to enter\exit or inside your home? NONE * PCP DR. ZUNIGA * Pharmacy [facility] [address] * Preadmission Environment Home with Family * ADLs Independent * Equipment Glucometer * Other Equipment NO MEDICAL EQUIPMENT PROVIDER PREFERENCE * List name and contact numbers for known caregivers / representatives who currently or will assist patient after discharge: NONE PER PATIENT * Verbal permission to speak to the caregivers and representatives has been obtained from the patient. N/A * Community resources currently utilized None * Please name any agencies selected above. NONE * Additional services required to return to the preadmission environment? No * Can the patient safely return to the preadmission environment? Yes * Has this patient been hospitalized within the prior 30 days at any hospital? No Last DP export: 10/15/19 3:54 Patient Name: CHANTALE CABRERA Page [id number] at 1530 All edits/amendments must be made on the electronic document DICTATION DATE: 10/16/191528 ASSISTANT CENTER DIRECTOR: FLOYD 10/16/191528 RPT#: [id number] [place] DATE: STATUS: ADM IN [facility] [address] [place] [address] END OF REPORT
--- NOTE | 2019-10-16 15:38 | MORECARE ---
CASE MANAGEMENT DISCHARGE SUMMARY PATIENT: CHANTALE CABRERA UNIT: [id number] ADM DATE: 10/11/19 AGE: 59 : 56 SEX: F ROOM/BED: D.2102 AUTHOR: HANNAH,DOC PHYSICIAN: REFERRING PHYSICIAN: CARMINE DURÁN MD DATE OF SERVICE: 10/16/19 Discharge Plan Patient Name: CHANTALE CABRERA Facility: [facility]:[place] : 1960 Planned Disposition: Home Anticipated Discharge Date: 10/16/19 Discharge Date: Expected LOS: 5 Initial Reviewer: [id number] Initial Review Date: 10/11/2019 Generated: 10/16/19 4:38 pm Comments DCP- Discharge Planning Updated by [id number]: Dann Pepe on 10/16/19 2:[address] Patient Name: CHANTALE CABRERA Encounter No: [id number] : 1960 [place] Insurance[place] [employer] [place] Anticipated DC Date: 10-16-2019 Planned Disposition: Home DCP follow-up note: CM SPOKE TO HOUSING MANAGER AND BEDSIDE NURSE, PT HAS BEEN DISCHARGED AND HAS NO RIDE HOME. CM MET WITH PT IN ROOM TO DISCUSS DISCHARGE NEEDS AND PLANNING. PT DENIES DISCHARGE NEEDS OTHER THAN TRANSPORT TO HER BROTHER'S HOME AT [address] [place] [address]. PT STATES HER BROTHER AGREED TO LET HER STAY WITH HIM AND ALREADY LEFT TO GO TO WORK TODAY AT [employer] IN THE [facility] AND DOESN'T GET OFF WORK UNTIL LATE TONIGHT. PT DOES NOT HAVE KEYS TO GET INTO THE HOUSE. CM ADVISED PT THAT SHE HAS BEEN DISCHARGED FROM HOSPITAL AND CM CANNOT SEND PT TO HER BROTHER'S HOME PT HAS NO WAY TO GET INTO THE HOUSE. PT STATES SHE WILL CALL HER BROTHER AND HAVE HIM PICK HER UP AFTER SHE GETS OFF FROM WORK BUT IT WILL BE LATE TONIGHT. PT STATES SHE NEEDS SCRUBS TO WEAR SHE HAS NO CLOTHES. CM NOTIFIED BEDSIDE NURSE AND JESSY, MOTHER TESTER. PT REPORTS HER BROTHER WILL PICK HER UP AFTER HE GETS OFF FROM WORK LATE TONIGHT. Dann Pepe, CASE MANAGEMENT DCP- Discharge Planning Updated by [id number]: Dann Pepe on 10/15/19 3:[address] Patient Name: CHANTALE CABRERA Encounter No: [id number] : 1960 [place] Insurance: [place] [employer] [place] Anticipated DC Date: 10-16-2019 Planned Disposition: Home DCP follow-up note: CM RECEIVED CALL FROM JOE AND LEANA DAVIS, PT'S FRIENDS, AND [phone]. HINA DUEÑAS INFORMED CM THAT THE HOME THAT PT WAS LIVING IN BELONGS TO [facility] AND PT CANNOT RETURN THERE [facility] IS GOING TO A USP AND THE HOUSE IS LOCKED AND FULL OF BUGS. PT IS TOO WEAK TO LIVE ON THE STREET AND HAS NO INCOME. THEY ASKED IF PT COULD GO TO [facility]. CM EXPLAINED THAT CM COULD NOT DISCUSS WITHOUT PT'S PERMISSION. LEANA INFORMED CM THAT PT'S BROTHER HAS HELPED PT IN THE PAST AND MAYBE HE CAN AGAIN. JOE PROVIDED PT'S PASTORS NUMBER, AND [phone]. CM MET WITH PT IN ROOM WHO PROVIDED PERMISSON TO SPEAK TO BOTH PASTOR LOUISE WELL JOE AND LEANA DAVIS IN REGARDS TO PT'S TREATMENT, CARE AND DISCHARGE PLANNING. CM DISCUSSED THAT PT CANNOT RETURN TO THE HOME WHERE SHE WAS LIVING. PT REPORTS SHE HAS BEEN TOLD AND PLANS TO STAY WITH HER BROTHER IN [place]. PT ASKED FOR CM TO CALL LEANA AND GET THE PHONE NUMBER TO HER BROTHER; CM CALLED LEANA DAVIS, , WHO PROVIDED PHONE NUMBER TO PT'S BROTHER, FERMIN DANIELS, . CM PROVIDED PHONE NUBMER TO PT TO CALL HER BROTHER. CM OFFERED TO START FINDING PT A [facility] IN [place], PT DECLINED AND REPORTS SHE WILL BE STAYING WITH HER BROTHER AND WILL CALL HIM. PT STATES THAT HER BROTHER IS SUPPOSED TO VISIT WITH HER AT THE HOSPITAL ALSO, SHE IS WAITING FOR HIS ARRIVAL. NASIR PATRICIA OF [place] DEPARTMENT OF HUMAN SERVICES, ADULT PROTECTIVE SERVICES, MET WITH PT ON TWO OCCAISIONS TODAY, MET WITH CM AND NOTIFED THAT THERE IS NO HOLD ON PATIENT, SHE HAS MENTAL CAPACITY TO MAKE DECISIONS FOR HERSELF. PT HAS TOLD MR. GOMEZ THAT SHE PLANS TO STAY WITH HER BROTHER IN [place]. PT HAS NO HOLD FROM ADULT PROTECTIVE SERVICES. PT HAS PLANS TO STAY WITH HER BROTHER IN [place] AT DISCHARGE. CM TO FOLLOW AND ASSIST NEEDED. Dann Pepe, CASE MANAGEMENT DCP- Discharge Planning Updated by [id number]: Dann Pepe on 10/11/19 3:[address] Patient Name: CHANTALE CABRERA Admission Status: ER Accout number: [id number] Admission Date: 10-11-2019 : 1960 Admission Diagnosis: Attending: CARMINE DURÁN Current LOS: 1 Anticipated DC Date: Planned Disposition: Home Primary Insurance: MEDICAID [place] Discharge Planning Comments: CM RECEIVED ORDER THAT PT HAS UNDESIRABLE LIVING CONDITIONS AND POSSIBLE APS INVOLVEMENT. CM MET WITH PT IN ROOM TO DISCUSS DISCHARGE PLANNING AND NEEDS. PT REPORTS LIVING AT HOME INDEPENDENTLY WITH HER ROOMATE, DARYL RAYMOND, WHO IS ALSO IN [facility]; PT STATES THEY WERE BROUGHT IN BECAUSE THEY HAVE BEDBUGS AND THE AMBULANCE PERSON CALL ADULT PROTECTIVE SERVICES. PT HAS GLUCOMETER WITH NO MEDICAL EQUIPMENT PROVIDER PREFERENCE. PT HAS NO OUTSIDE SERVICES ASSISTING IN THE HOME. CM DISCUSSED AVAILABILITY OF HOME HEALTH, REHAB SERVICES AND MEDICAL EQUIPMENT. PT DENIES DISCHARGE NEEDS, REPORTS SHE WILL NEED ASSISTANCE WITH TRANSPORTATION TO GET HOME SHE NOR [address]. PT STATES SHE DOES USE MEDICAID BUS FOR MEDICAL APPOINTMENTS. PT REPORTS SHE HAS TREATED THE HOME FOR BEDBUGS WITH SPRAY AND POWDER, BUT THEY ARE STILL THERE. PT REPORTS SHE WOULD WELCOME ASSISTANCE FROM ADULT PROTECTIVE SERVICES TO GET RID OF BEDBUGS IF THEY CAN. PT REPORTS HER HOME TO BE SAFE AND SHE PLANS TO RETURN THERE AT DISCHARGE. PT PLANS TO RETURN HOME WITH ROOMMATE, DENIES DISCHARGE NEEDS. PT WILL NEED ASSISTANCE WITH TRANSPORTATION AND MAY USE THE MEDICAID TRANSPORT BUS IF IT IS AVAILABLE. CM TO CONTINUE TO FOLLOW AND ASSIST IF NEEDED. Wind Turbine Machinist: Dann Pepe DCPIA - Discharge Planning Initial Assessment Updated by [id number]: Dann Pepe on 10/11/19 4:53 pm * Is the patient Alert and Oriented? Yes * How many steps to enter\exit or inside your home? NONE * PCP DR. ZUNIGA * Pharmacy [facility] [address] * Preadmission Environment Home with Family * ADLs Independent * Equipment Glucometer * Other Equipment NO MEDICAL EQUIPMENT PROVIDER PREFERENCE * List name and contact numbers for known caregivers / representatives who currently or will assist patient after discharge: NONE PER PATIENT * Verbal permission to speak to the caregivers and representatives has been obtained from the patient. N/A * Community resources currently utilized None * Please name any agencies selected above. NONE * Additional services required to return to the preadmission environment? No * Can the patient safely return to the preadmission environment? Yes * Has this patient been hospitalized within the prior 30 days at any hospital? No Last DP export: 10/16/19 2:30 Patient Name: CHANTALE CABRERA Page [id number] at 1538 All edits/amendments must be made on the electronic document DICTATION DATE: 10/16/191537 CLERICAL AIDE: FLOYD 10/16/191537 RPT#: [id number] DC DATE: STATUS: ADM IN [facility] [address] [place] [address] END OF REPORT
--- NOTE | 2019-10-16 16:18 | MORECARE ---
CASE MANAGEMENT DISCHARGE SUMMARY PATIENT: CHANTALE CABRERA UNIT: [id number] ADM DATE: 10/11/19 AGE: 59 : 56 SEX: F ROOM/BED: D.2106 AUTHOR: HANNAH,DOC PHYSICIAN: REFERRING PHYSICIAN: CARMINE DURÁN MD DATE OF SERVICE: 10/16/19 Discharge Plan Patient Name: CHANTALE CABRERA Facility: [facility]:[place] : 1960 Planned Disposition: Home Anticipated Discharge Date: 10/16/19 Discharge Date: Expected LOS: 5 Initial Reviewer: [id number] Initial Review Date: 10/11/2019 Generated: 10/16/19 5:17 pm Comments DCP- Discharge Planning Updated by [id number]: Dann Pepe on 10/16/19 2:[address] Patient Name: CHANTALE CABRERA Encounter No: [id number] : 1960 [place] Insurance[place] [employer] [place] Anticipated DC Date: 10-16-2019 Planned Disposition: Home DCP follow-up note: CM SPOKE TO DIRECTOR OF PHYSICAL SECURITY AND BEDSIDE NURSE, PT HAS BEEN DISCHARGED AND HAS NO RIDE HOME. CM MET WITH PT IN ROOM TO DISCUSS DISCHARGE NEEDS AND PLANNING. PT DENIES DISCHARGE NEEDS OTHER THAN TRANSPORT TO HER BROTHER'S HOME AT [address] [place] [address]. PT STATES HER BROTHER AGREED TO LET HER STAY WITH HIM AND ALREADY LEFT TO GO TO WORK TODAY AT [employer] [facility] AND DOESN'T GET OFF WORK UNTIL LATE TONIGHT. PT DOES NOT HAVE KEYS TO GET INTO THE HOUSE. CM ADVISED PT THAT SHE HAS BEEN DISCHARGED FROM HOSPITAL AND CM CANNOT SEND PT TO HER BROTHER'S HOME PT HAS NO WAY TO GET INTO THE HOUSE. PT STATES SHE WILL CALL HER BROTHER AND HAVE HIM PICK HER UP AFTER SHE GETS OFF FROM WORK BUT IT WILL BE LATE TONIGHT. PT STATES SHE NEEDS SCRUBS TO WEAR SHE HAS NO CLOTHES. CM NOTIFIED BEDSIDE NURSE AND JESSY, ACCOUNTS RECEIVABLE COLLECTOR. PT REPORTS HER BROTHER WILL PICK HER UP AFTER HE GETS OFF FROM WORK LATE TONIGHT. Dann Pepe, CASE MANAGEMENT DCP- Discharge Planning Updated by [id number]: Dann Pepe on 10/15/19 3:[address] Patient Name: CHANTALE CABRERA Encounter No: [id number] : 1960 Primary Insurance: [place] [employer] [place] Anticipated DC Date: 10-16-2019 Planned Disposition: Home DCP follow-up note: CM RECEIVED CALL FROM JOE AND LEANA DAVIS, PT'S FRIENDS, AND [phone]. HINA DUEÑAS INFORMED CM THAT THE HOME THAT PT WAS LIVING IN BELONGS TO [facility] AND PT CANNOT RETURN THERE [facility] IS GOING TO A CUSTODIAL AND THE HOUSE IS LOCKED AND FULL OF BUGS. PT IS TOO WEAK TO LIVE ON THE STREET AND HAS NO INCOME. THEY ASKED IF PT COULD GO TO [facility]. CM EXPLAINED THAT CM COULD NOT DISCUSS WITHOUT PT'S PERMISSION. LEANA INFORMED CM THAT PT'S BROTHER HAS HELPED PT IN THE PAST AND MAYBE HE CAN AGAIN. JOE PROVIDED PT'S PASTORS NUMBER, AND [phone]. CM MET WITH PT IN ROOM WHO PROVIDED PERMISSON TO SPEAK TO BOTH PASTOR LOUISE WELL JOE AND LEANA DAVIS IN REGARDS TO PT'S TREATMENT, CARE AND DISCHARGE PLANNING. CM DISCUSSED THAT PT CANNOT RETURN TO THE HOME WHERE SHE WAS LIVING. PT REPORTS SHE HAS BEEN TOLD AND PLANS TO STAY WITH HER BROTHER IN [place]. PT ASKED FOR CM TO CALL LEANA AND GET THE PHONE NUMBER TO HER BROTHER; CM CALLED LEANA DAVIS, , WHO PROVIDED PHONE NUMBER TO PT'S BROTHER, FERMIN DANEILS, . CM PROVIDED PHONE NUBMER TO PT TO CALL HER BROTHER. CM OFFERED TO START FINDING PT A [facility] IN [place], PT DECLINED AND REPORTS SHE WILL BE STAYING WITH HER BROTHER AND WILL CALL HIM. PT STATES THAT HER BROTHER IS SUPPOSED TO VISIT WITH HER AT THE HOSPITAL ALSO, SHE IS WAITING FOR HIS ARRIVAL. NASIR PATRICIA OF [place] DEPARTMENT OF HUMAN SERVICES, ADULT PROTECTIVE SERVICES, MET WITH PT ON TWO OCCAISIONS TODAY, MET WITH CM AND NOTIFED THAT THERE IS NO HOLD ON PATIENT, SHE HAS MENTAL CAPACITY TO MAKE DECISIONS FOR HERSELF. PT HAS TOLD MR. GOMEZ THAT SHE PLANS TO STAY WITH HER BROTHER IN [place]. PT HAS NO HOLD FROM ADULT PROTECTIVE SERVICES. PT HAS PLANS TO STAY WITH HER BROTHER IN [place] AT DISCHARGE. CM TO FOLLOW AND ASSIST NEEDED. Dann Pepe, CASE MANAGEMENT DCP- Discharge Planning Updated by [email or web address]: Dann Pepe on 10/11/19 3:[address] Patient Name: CHANTALE CABRERA Admission Status: ER Accout number: [id number] Admission Date: 10-11-2019 : 1960 Admission Diagnosis: Attending: CARMINE DURÁN Current LOS: 1 Anticipated DC Date: Planned Disposition: Home Primary Insurance: MEDICAID [place] Discharge Planning Comments: CM RECEIVED ORDER THAT PT HAS UNDESIRABLE LIVING CONDITIONS AND POSSIBLE APS INVOLVEMENT. CM MET WITH PT IN ROOM TO DISCUSS DISCHARGE PLANNING AND NEEDS. PT REPORTS LIVING AT HOME INDEPENDENTLY WITH HER ROOMATE, DARYL RAYMOND, WHO IS ALSO IN THE [facility] [place]; PT STATES THEY WERE BROUGHT IN BECAUSE THEY HAVE BEDBUGS AND THE AMBULANCE PERSON CALL ADULT PROTECTIVE SERVICES. PT HAS GLUCOMETER WITH NO MEDICAL EQUIPMENT PROVIDER PREFERENCE. PT HAS NO OUTSIDE SERVICES ASSISTING IN THE HOME. CM DISCUSSED AVAILABILITY OF HOME HEALTH, REHAB SERVICES AND MEDICAL EQUIPMENT. PT DENIES DISCHARGE NEEDS, REPORTS SHE WILL NEED ASSISTANCE WITH TRANSPORTATION TO GET HOME SHE NOR [address]. PT STATES SHE DOES USE MEDICAID BUS FOR MEDICAL APPOINTMENTS. PT REPORTS SHE HAS TREATED THE HOME FOR BEDBUGS WITH SPRAY AND POWDER, BUT THEY ARE STILL THERE. PT REPORTS SHE WOULD WELCOME ASSISTANCE FROM ADULT PROTECTIVE SERVICES TO GET RID OF BEDBUGS IF THEY CAN. PT REPORTS HER HOME TO BE SAFE AND SHE PLANS TO RETURN THERE AT DISCHARGE. PT PLANS TO RETURN HOME WITH ROOMMATE, DENIES DISCHARGE NEEDS. PT WILL NEED ASSISTANCE WITH TRANSPORTATION AND MAY USE THE MEDICAID TRANSPORT BUS IF IT IS AVAILABLE. CM TO CONTINUE TO FOLLOW AND ASSIST IF NEEDED. Machine Attendant: Dann Pepe DCPIA - Discharge Planning Initial Assessment Updated by [id number]: Dann Pepe on 10/11/19 4:53 pm * Is the patient Alert and Oriented? Yes * How many steps to enter\exit or inside your home? NONE * PCP DR. ZUNIGA * Pharmacy [facility] [address] * Preadmission Environment Home with Family * ADLs Independent * Equipment Glucometer * Other Equipment NO MEDICAL EQUIPMENT PROVIDER PREFERENCE * List name and contact numbers for known caregivers / representatives who currently or will assist patient after discharge: NONE PER PATIENT * Verbal permission to speak to the caregivers and representatives has been obtained from the patient. N/A * Community resources currently utilized None * Please name any agencies selected above. NONE * Additional services required to return to the preadmission environment? No * Can the patient safely return to the preadmission environment? Yes * Has this patient been hospitalized within the prior 30 days at any hospital? No Last DP export: 10/16/19 2:38 Patient Name: CHANTALE CABRERA Page 52912 at 1618 All edits/amendments must be made on the electronic document DICTATION DATE: 10/16/191616 HANDLE BENDER: FLOYD 10/16/191616 RPT#: [id number] DC DATE: STATUS: ADM IN [facility] [address] [place] [address] END OF REPORT
--- NOTE | 2019-10-16 16:28 | MORECARE ---
CASE MANAGEMENT DISCHARGE SUMMARY PATIENT: CHANTALE CABRERA UNIT: [id number] ADM DATE: 10/11/19 AGE: 59 : 56 SEX: F ROOM/BED: D.2107 AUTHOR: HANNAH,DOC PHYSICIAN: REFERRING PHYSICIAN: CARMINE DURÁN MD DATE OF SERVICE: 10/16/19 Discharge Plan Patient Name: CHANTALE CABRERA Facility: [facility]:[place] : 1960 Planned Disposition: Home Anticipated Discharge Date: 10/16/19 Discharge Date: Expected LOS: 5 Initial Reviewer: [email or web address] Initial Review Date: 10/11/2019 Generated: 10/16/19 5:27 pm Comments DCP- Discharge Planning Updated by [email or web address]: Zan Izaguirre on 10/16/19 3:[address] Patient Name: CHANTALE CABRERA Encounter No: [id number] : 1960 [place] [employer] Anticipated DC Date: 10-16-2019 Planned Disposition: Home DCP follow-up note: CM SPOKE TO HAND STONE POLISHER AND BEDSIDE NURSE, PT HAS BEEN DISCHARGED AND HAS NO RIDE HOME. CM MET WITH PT IN ROOM TO DISCUSS DISCHARGE NEEDS AND PLANNING. PT DENIES DISCHARGE NEEDS OTHER THAN TRANSPORT TO HER BROTHER'S HOME AT [address] [place] [address]. PT STATES HER BROTHER AGREED TO LET HER STAY WITH HIM AND ALREADY LEFT TO GO TO WORK TODAY AT [employer] IN THE [facility] AND DOESN'T GET OFF WORK UNTIL LATE TONIGHT. PT DOES NOT HAVE KEYS TO GET INTO THE HOUSE. CM ADVISED PT THAT SHE HAS BEEN DISCHARGED FROM HOSPITAL AND CM CANNOT SEND PT TO HER BROTHER'S HOME PT HAS NO WAY TO GET INTO THE HOUSE. PT STATES SHE WILL CALL HER BROTHER AND HAVE HIM PICK HER UP AFTER SHE GETS OFF FROM WORK BUT IT WILL BE LATE TONIGHT. PT STATES SHE NEEDS SCRUBS TO WEAR SHE HAS NO CLOTHES. CM NOTIFIED BEDSIDE NURSE AND JESSY, PLANNING RN. PT REPORTS HER BROTHER WILL PICK HER UP AFTER HE GETS OFF FROM WORK LATE TONIGHT. 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 CM MET WITH PT IN ROOM WHO REQUESTED CM CALL LEANA, HER FRIEND, TO GET HER SISTER IN LAWS NUMBER. CM CALLED LEANA WHO PROVIDED PT WITH HER SISTER IN LAW'S PHONE NUMBER: LORI, . PT CALLED LORI WHO INFORMED HER THAT THEYW ILL CANDLE MAKER PT AT ABOUT 1130PM WHEN THEY GET OFF FROM WORK. FAMILY TO CANDLE MAKER TODAY AT ABOUT 1130 PM. ZAN IZAGUIRRE, CASE MANAGEMENT DCP- Discharge Planning Updated by [email or web address]: Zan Izaguirre on 10/15/19 3:[address] Patient Name: CHANTALE CABRERA Encounter No: [id number] : 1960 [place] Insurance: [place] [employer] Anticipated DC Date: 10-16-2019 Planned Disposition: Home DCP follow-up note: CM RECEIVED CALL FROM JOE AND LEANA DAVIS, PT'S FRIENDS, AND [phone]. HINA DUEÑAS INFORMED CM THAT THE HOME THAT PT WAS LIVING IN BELONGS TO [facility] AND PT CANNOT RETURN THERE [facility] IS GOING TO A GROUP HOME AND THE HOUSE IS LOCKED AND FULL OF BUGS. PT IS TOO WEAK TO LIVE ON THE STREET AND HAS NO INCOME. THEY ASKED IF PT COULD GO TO [facility]. JOSE EXPLAINED THAT CM COULD NOT DISCUSS WITHOUT PT'S PERMISSION. LEANA INFORMED CM THAT PT'S BROTHER HAS HELPED PT IN THE PAST AND MAYBE HE CAN AGAIN. JOE PROVIDED PT'S PASTORS NUMBER, AND [phone]. JOSE MET WITH PT IN ROOM WHO PROVIDED PERMISSON TO SPEAK TO BOTH PASTOR LOUISE WELL WALT DAVIS IN REGARDS TO PT'S TREATMENT, CARE AND DISCHARGE PLANNING. CM DISCUSSED THAT PT CANNOT RETURN TO THE HOME WHERE SHE WAS LIVING. PT REPORTS SHE HAS BEEN TOLD AND PLANS TO STAY WITH HER BROTHER IN [place]. PT ASKED FOR CM TO CALL LEANA AND GET THE PHONE NUMBER TO HER BROTHER; CM CALLED LEANA DAVIS, , WHO PROVIDED PHONE NUMBER TO PT'S BROTHER, FERMIN DANIELS, . CM PROVIDED PHONE NUBMER TO PT TO CALL HER BROTHER. CM OFFERED TO START FINDING PT A [facility] IN [place], PT DECLINED AND REPORTS SHE WILL BE STAYING WITH HER BROTHER AND WILL CALL HIM. PT STATES THAT HER BROTHER IS SUPPOSED TO VISIT WITH HER AT THE HOSPITAL ALSO, SHE IS WAITING FOR HIS ARRIVAL. NASIR GOMEZ OF [place] DEPART[facility] OF [facility], ADULT PROTECTIVE SERVICES, MET WITH PT ON TWO OCCAISIONS TODAY, MET WITH CM AND NOTIFED THAT THERE IS NO HOLD ON PATIENT, SHE HAS MENTAL CAPACITY TO MAKE DECISIONS FOR HERSELF. PT HAS TOLD MR. GOMEZ THAT SHE PLANS TO STAY WITH HER BROTHER IN [place]. PT HAS NO HOLD FROM ADULT PROTECTIVE SERVICES. PT HAS PLANS TO STAY WITH HER BROTHER IN [place] AT DISCHARGE. CM TO FOLLOW AND ASSIST NEEDED. Zan Izaguirre, CASE MANAGEMENT DCP- Discharge Planning Updated by [email or web address]: Zan Izaguirre on 10/11/19 3:[address] Patient Name: CHANTALE CABRERA Admission Status: ER Accout number: [id number] Admission Date: 10-11-2019 : 1960 Admission Diagnosis: Attending: CARMINE DURÁN Current LOS: 1 Anticipated DC Date: Planned Disposition: Home Primary Insurance: MEDICAID [place] Discharge Planning Comments: CM RECEIVED ORDER THAT PT HAS UNDESIRABLE LIVING CONDITIONS AND POSSIBLE APS INVOLVEMENT. CM MET WITH PT IN ROOM TO DISCUSS DISCHARGE PLANNING AND NEEDS. PT REPORTS LIVING AT HOME INDEPENDENTLY WITH HER ROOMATE, DARYL RAYMOND, WHO IS ALSO IN THE [facility] [place]; PT STATES THEY WERE BROUGHT IN BECAUSE THEY HAVE BEDBUGS AND THE AMBULANCE PERSON CALL ADULT PROTECTIVE SERVICES. PT HAS GLUCOMETER WITH NO MEDICAL EQUIPMENT PROVIDER PREFERENCE. PT HAS NO OUTSIDE SERVICES ASSISTING IN THE HOME. CM DISCUSSED AVAILABILITY OF HOME HEALTH, REHAB SERVICES AND MEDICAL EQUIPMENT. PT DENIES DISCHARGE NEEDS, REPORTS SHE WILL NEED ASSISTANCE WITH TRANSPORTATION TO GET HOME [place] [address]. PT STATES SHE DOES USE MEDICAID BUS FOR MEDICAL APPOINTMENTS. PT REPORTS SHE HAS TREATED THE HOME FOR BEDBUGS WITH SPRAY AND POWDER, BUT THEY ARE STILL THERE. PT REPORTS SHE WOULD WELCOME ASSISTANCE FROM ADULT PROTECTIVE SERVICES TO GET RID OF BEDBUGS IF THEY CAN. PT REPORTS HER HOME TO BE SAFE AND SHE PLANS TO RETURN THERE AT DISCHARGE. PT PLANS TO RETURN HOME WITH ROOMMATE, DENIES DISCHARGE NEEDS. PT WILL NEED ASSISTANCE WITH TRANSPORTATION AND MAY USE THE MEDICAID TRANSPORT BUS IF IT IS AVAILABLE. CM TO CONTINUE TO FOLLOW AND ASSIST IF NEEDED. Technology Professional: Zan Izaguirre DCPIA - Discharge Planning Initial Assessment Updated by [id number]: Zan Izaguirre on 10/11/19 4:53 pm * Is the patient Alert and Oriented? Yes * How many steps to enter\exit or inside your home? NONE * PCP DR. ZUNIGA * Pharmacy [facility] [address] * Preadmission Environment Home with Family * ADLs Independent * Equipment Glucometer * Other Equipment NO MEDICAL EQUIPMENT PROVIDER PREFERENCE * List name and contact numbers for known caregivers / representatives who currently or will assist patient after discharge: NONE PER PATIENT * Verbal permission to speak to the caregivers and representatives has been obtained from the patient. N/A * Community resources currently utilized None * Please name any agencies selected above. NONE * Additional services required to return to the preadmission environment? No * Can the patient safely return to the preadmission environment? Yes * Has this patient been hospitalized within the prior 30 days at any hospital? No Last DP export: 10/16/19 3:18 Patient Name: CHANTALE CABRERA Page [id number] at 1628 All edits/amendments must be made on the electronic document DICTATION DATE: 10/16/191626 WAGON WASHER: FLOYD 10/16/191626 RPT#: [id number] DC DATE: STATUS: ADM IN [facility] [address] [place] [address] END OF REPORT
--- NOTE | 2019-10-16 18:31 | NUR ---
DISCHARGE INSTRUCTIONS REVIEWED WITH PT AND VERBALIZES UNDERSTANDING WITH NO QUESTIONS. BOTH SL STARTED LEAKING WHEN I TRIED TO GIVE HER ANTIBIOTICS AND THEY WERE BOTH DC'D WITH TIPS INTACT.
--- NOTE | 2019-10-16 20:26 | NUR ---
PT RESTING IN BED ALERT AND ORIENTED X4 WAITING FOR ENGRAVER WOOD FROM BROTHER. PT HAS BEEN DISCHARGED HOME. NO S/S OF DISTRESS AT THUIS TIME. WILL CONTINUIE TO MONITOR.
--- NOTE | 2019-10-16 22:34 | NUR ---
PT DC'D TO BROTHER VIA WHEELCHAIR. NO S/S OF DISTRESS AT THIS TIME. IV'S D/C'D BELONGINGS IN BAG WITH PT AND DISCHARGE INSTRUCTIONS. VITALS STABLE.
--- NOTE | 2019-10-17 10:40 | EC ---
PATIENT:CHANTALE CABRERA DATE OF SERVICE: 10/11/19 SEX: F MEDICAL RECORD: [id number] DATE OF : [birth year] LOCATION:D.M2 D.210 AGE OF PATIENT: 59 ADMISSION DATE: 10/11/19 REFERRING PHYSICIAN: INTERPRETING PHYSICIAN: DENA SCHUSTER MD ECHOCARDIOGRAM REPORT ECHO CHARGES 4 ECHO COMPLETE Date: 10/11/19 CLINICAL DIAGNOSIS: FALL ECHOCARDIOGRAPHIC MEASUREMENTS (adult normal given) AC root (d.<3.7cm) 3.6 cm LV Septum d (<1.2 cm> 0.9 cm Valve Excursion 2.1 cm LV Septum (systole) 1.4 cm Left Atria (s.<4.0cm> 3.3 cm LVPW d(<1.2cm) 1.3 cm RV (d.<2.3cm) 2.4 cm LVPW (sytole) 2.0 cm LV diastole(<5.6CM) 5.0 cm MV E-F(>70mm/sec) cm LV systole 5.2 cm LVOT Diameter 1.9 cm MV exc.(>10mm) cm Est.ejection fraction (50-75%) % DOPPLER: LVIT cm/sec A 83.0 cm/sec E 92.0 cm/sec LA cm/sec RVSP 30.7 mmHg LVOT 140 cm/sec AOP1/2T m/s Asc. Ao 143 cm/sec RVOT 71.0 cm/sec RA cm/sec PA 90.0 cm/sec AV Gradient Peak 8.2 mmHg AV Mean 4.4 mmHg AV Area 3.0 cm MV Gradient Peak 5.9 mmHg MV Mean 3.4 mmHg MV Area cm COMMENTS: Legal Technician: Lionel NAGY Bankruptcy Attorney: 1 Dr. Schuster TAPE# PACS Pericardial Effusion N DATE OF SERVICE: 10/11/2019 Echocardiogram FINDINGS: 1. Left ventricular chamber size is within normal limits. Left ventricular systolic function is normal. Overall ejection fraction estimated at 60%. 2. Left atrium, right atrium, and right ventricle chamber sizes are within normal limits. 3. Valvular structures have normal structure and motion. ECHOCARDIOGRAM REPORT [id number] CHANTALE CABRERA 4. Doppler interrogation reveals no significant valvular insufficiency or stenosis. 5. No evidence of pericardial effusion or left ventricular thrombus. TRANSINT:[id number] Voice Confirmation ID: [id number] DOCUMENT ID: [id number] DENA SCHUSTER MD at 1040 CC: [id number] DICTATION DATE: 10/11/19 1435 BOLT LOADER: 10/11/191954 DIS IN 10/16/19 [facility] [address] [id number]
== END 2019-10-16 22:36 | disposition home or self-care (01) | DRG 812 ==
LOC: D.ER 00:42 → D.M2 02:01
PROVIDERS: Family Medicine; ADMIT Internal Medicine Nephrology; ATTEND Internal Medicine Nephrology
DX: D50.9 Iron deficiency anemia, unspecified (principal); N39.0 Urinary tract infection, site not specified; E87.1 Hypo-osmolality and hyponatremia; F15.90 Other stimulant use, unspecified, uncomplicated; F41.8 Other specified anxiety disorders; E03.9 Hypothyroidism, unspecified; M19.121 Post-traumatic osteoarthritis, right elbow; S42.411S Displaced simple supracondylar fracture without intercondylar fracture of right humerus, sequela; X58.XXXS Exposure to other specified factors, sequela; B96.89 Other specified bacterial agents as the cause of diseases classified elsewhere; E11.65 Type 2 diabetes mellitus with hyperglycemia; Z91.11 Patient's noncompliance with dietary regimen; Z87.891 Personal history of nicotine dependence; Z91.81 History of falling